=== PATIENT | female | born 1975 | race Caucasian/White ===

== ENCOUNTER 2016-09-06 08:14 | Emergency (ER) | payer MEDICARE ==
[~2016-09-06] VITALS: Ht 167.6 cm; Wt 120.6 kg
[~2016-09-06 08:14] MED LIST: CARI350T PO; FLUO20CA19 PO; HYDR-3307 PO; ZOLP10TA PO
[2016-09-06 08:29] VITALS: BP 152/97
[2016-09-06] MEDS ORDERED: HYDR25TA6 PO (09:06)
[2016-09-06] MEDS ORDERED: RISP1TAB45 PO (09:06)
[2016-09-06] MEDS ORDERED: ASPIRIN 81 MG TABLET CHEW PO ONE (09:30)
[2016-09-06] MEDS ORDERED: ASPIRIN 81 MG TABLET CHEW ONE (09:48)
[2016-09-06 10:19] LABS: ASPARTATE AMINO TRANSFERASE 15 U/L (15-37); BLOOD UREA NITROGEN 10 mg/dL (7-18)
[2016-09-06 10:25] LABS: IS PT STATUS REG ER OR PRE ER? YES
[2016-09-06 11:29] LABS: HCG UR OBC PASS
== END 2016-09-06 13:14 | disposition home or self-care (01) ==
LOC: ED 09:16
DX: N30.01 Acute cystitis with hematuria (principal); R07.89 Other chest pain; R60.0 Localized edema; I10 Essential (primary) hypertension
CPT/HCPCS: 36415; 71020; 80053; 81001; 81025; 84484; 85025; 87077; 87086; 87186; 93005; 93970; 99285

== ENCOUNTER 2016-12-04 18:41 | Emergency (ER) | payer MEDICARE ==
[~2016-12-04] VITALS: Ht 167.6 cm; Wt 123.0 kg
[~2016-12-04 18:41] MED LIST changes: +HYDR25TA6 PO; +RISP1TAB45 PO
[2016-12-04] MEDS ORDERED: SODIUM CHLORIDE FLUSH 10ML SYR IVF ONE (19:00)
[2016-12-04] MEDS ORDERED: ONDANSETRON 2MG/ML, 2ML IVPush ONE (19:00)
[2016-12-04] MEDS ORDERED: MORPHINE SULFATE 4 MG/ML, 1ML IVPush PRN (19:00)
[2016-12-04] MEDS ORDERED: ONDANSETRON 2MG/ML, 2ML ONE (19:02)
[2016-12-04] MEDS ORDERED: MORPHINE SULFATE 4 MG/ML, 1ML ONE (19:02)
[2016-12-04 19:19] LABS: HEMATOCRIT 39.4 % (34.6-47.8); HEMOGLOBIN 12.9 g/dL (11.7-16.4); WHITE BLOOD COUNT 8.7 x10^3/uL (3.4-10)
[2016-12-04 19:30] LABS: BLOOD UREA NITROGEN 12 mg/dL (7-18)
[2016-12-04] MEDS ORDERED: METOCLOPRAMIDE 5 MG/ML, 2ML IVPush ONE (20:00)
[2016-12-04] MEDS ORDERED: SODIUM CHLORIDE 0.9% 1,000ML IVBOLUS ONE (20:00)
[2016-12-04] MEDS ORDERED: DIPHENHYDRAMINE 50 MG/ML, 1ML IVPush ONE (20:00)
[2016-12-04] MEDS ORDERED: DIPHENHYDRAMINE 50 MG/ML, 1ML ONE (20:15)
[2016-12-04] MEDS ORDERED: METOCLOPRAMIDE 5 MG/ML, 2ML ONE (20:15)
[2016-12-04] MEDS ORDERED: KETOROLAC 30 MG/1 ML IVPush ONE (20:30)
[2016-12-04] MEDS ORDERED: KETOROLAC 30 MG/1 ML ONE (20:59)
[2016-12-04 21:27] VITALS: BP 143/79
== END 2016-12-04 21:31 | disposition home or self-care (01) ==
LOC: ED 20:44
DX: G43.009 Migraine without aura, not intractable, without status migrainosus (principal); F12.10 Cannabis abuse, uncomplicated; F20.9 Schizophrenia, unspecified
CPT/HCPCS: 36415; 70450; 71010; 80048; 82040; 85025; 93005; 96361; 96374; 96375; 99285; J1200; J1885; J2405; J2765; J7030

== ENCOUNTER 2019-10-13 23:41 | Observation (INO) | payer MEDICARE ==
[~2019-10-13] VITALS: Ht 167.6 cm; Wt 124.3 kg
[~2019-10-13 23:41] MED LIST changes: +HYDR-3246 PO; -HYDR-3307 PO; +TOPI15CA10 PO
--- NOTE | 2019-10-14 00:28 | NUR ---
PT IN GOWN IN [facility] WITH DR. MATTHEWS AT BS. PT EDUCATED ON ER PROCESS AND POC AND VERBALIZES UNDERSTANDING. PT ATTACHED TO ALL VS AND CARDIAC MONITORS. VSS AT THIS TIME. PT DENIES ANY OTHER NEEDS. VERBAL ORDERS RECEIVED FROM ERP.
[2019-10-14] MEDS ORDERED: MAALOX/HYOSCYAMINE/LIDOCAINE 45 ML BTL ONE (00:35)
--- NOTE | 2019-10-14 00:41 | NUR ---
PT MEDICATED PER JUN. XRAY AT BS FOR IMAGING AT THIS TIME.
[2019-10-14 01:03] LABS: BASOPHILS # (AUTO) 0.02 x10^3/uL (0-0.1); BASOPHILS % (AUTO) 0 % (0-1); EOSINOPHILS # (AUTO) 0.18 x10^3/uL (0-0.4); EOSINOPHILS % (AUTO) 2 % (1-7); LYMPHOCYTES # (AUTO) 1.64 x10^3/uL (1-3.4); LYMPHOCYTES % (AUTO) 22 % (22-44); MD NO; MEAN CORPUSCULAR HEMOGLOBIN 27.9 pg (27.0-34.8); MEAN CORPUSCULAR HGB CONC 32.7 g/dL (32.4-35.8); MEAN CORPUSCULAR VOLUME 85.4 fL (80-100); MEAN PLATELET VOLUME 9.8 fL (7.4-10.4); MONOCYTES # (AUTO) 0.63 x10^3/uL (0.2-0.8); MONOCYTES % (AUTO) 8 % (2-9); NEUTROPHILS # (AUTO) 5.07 x10^3/uL (1.8-6.8); NEUTROPHILS % (AUTO) 67 % (42-75); PLATELET COUNT 276 x10^3/uL (130-400); RED BLOOD COUNT 4.67 x10^6/uL (3.82-5.3); RED CELL DISTRIBUTION WIDTH 14.6 % (9.6-15.2)
[2019-10-14 01:11] LABS: ALBUMIN 3.2 g/dL (3.4-5.0); ANION GAP 7 mmol/L (5-15); CALCIUM 8.9 mg/dL (8.5-10.1); CHLORIDE 95 mmol/L (98-107); CREATININE 1.07 mg/dL (0.55-1.02)
[2019-10-14 01:14] LABS: TROPONIN I < 0.015 ng/mL (0.000-0.045)
[2019-10-14] MEDS ORDERED: INSULIN REGULAR 100 UNITS/ML, 3ML VIAL SQ-INSULIN ONE ×3 (02:00→15:30)
[2019-10-14] MEDS ORDERED: INSULIN SINGLE DOSE, ER ONE (02:05)
--- NOTE | 2019-10-14 02:12 | NUR ---
PT MEDICATED FOR BLOOD SUGAR PER MAR.
[2019-10-14] MEDS ORDERED: SODIUM CHLORIDE 0.9% 1,000 ML IV SCH (03:16)
[2019-10-14] MEDS ORDERED: ONDANSETRON 2MG/ML, 2ML IVPush PRN (03:30)
[2019-10-14] MEDS ORDERED: morphine SULFATE 10 MG/ML, 1ML IVPush PRN (03:30)
[2019-10-14] MEDS ORDERED: GUAIFENESIN/DM 200-20MG, 10ML UDC PO PRN (03:30)
[2019-10-14] MEDS ORDERED: NITROGLYCERIN 0.4 MG BOTTLE (25 TABS) SL PRN (03:30)
[2019-10-14] MEDS ORDERED: METHOCARBAMOL 500 MG TABLET PO PRN (03:30)
[2019-10-14] MEDS ORDERED: NITROGLYCERIN 0.4 MG/SPRAY SL PRN (03:30)
[2019-10-14] MEDS ORDERED: BISACODYL 10 MG SUPP PR PRN (03:30)
[2019-10-14] MEDS ORDERED: HYDROcodone/APAP 5/325 TABLET PO PRN (03:30)
[2019-10-14] MEDS ORDERED: hydrALAzine 20 MG/ML, 1ML IVPush PRN (03:30)
[2019-10-14] MEDS ORDERED: ZOLPIDEM 5MG TABLET PO PRN (03:30)
[2019-10-14] MEDS ORDERED: ASA/APAP/ CAFFEINE TABLET PO PRN (03:30)
[2019-10-14] MEDS ORDERED: ACETAMINOPHEN 325 MG TABLET PO PRN (03:30)
[2019-10-14] MEDS ORDERED: RISP1TAB45 PO (03:31)
[2019-10-14] MEDS ORDERED: FLUO20CA19 PO (03:31)
[2019-10-14] MEDS ORDERED: TOPI15CA10 PO (03:31)
[2019-10-14] MEDS ORDERED: PROP20TA PO (03:36)
[2019-10-14] MEDS ORDERED: HYDR25TA6 PO (03:36)
[2019-10-14] MEDS ORDERED: HYDR-826 PO (03:36)
[2019-10-14] MEDS ORDERED: METF500T PO ×2 (03:36→15:09)
[2019-10-14] MEDS ORDERED: HYDR-3652 PO (03:36)
[2019-10-14] MEDS ORDERED: GABA100C PO (03:36)
[2019-10-14] MEDS ORDERED: FLUO40CA2 PO (03:39)
[2019-10-14] MEDS ORDERED: RISP1DIS PO (03:39)
[2019-10-14] MEDS ORDERED: TOPI50TA8 PO (03:39)
[2019-10-14] MEDS: INSULIN REGULAR 100 UNITS/ML, 3ML VIAL SQ-INSULIN SCH ×3 (04:21→12:58)
[2019-10-14 04:31] LABS: TROPONIN I < 0.015 ng/mL (0.000-0.045)
[2019-10-14] MEDS ORDERED: PROPRANOLOL 20 MG TABLET PO SCH (06:00)
[2019-10-14 06:12] VITALS: BP 154/83
[2019-10-14 07:00] VITALS: BP 149/86
[2019-10-14 07:36] LABS: MICROSCOPIC INDICATED
[2019-10-14] MEDS ORDERED: metFORMIN 500 MG TABLET PO SCH (08:00)
[2019-10-14] MEDS ORDERED: FLUOXETINE HCL 20 MG CAPSULE PO SCH (09:00)
[2019-10-14] MEDS ORDERED: TOPIRAMATE 25 MG TABLET PO SCH (09:00)
[2019-10-14] MEDS ORDERED: HYDROCHLOROTHIAZIDE 25 MG TABLET PO SCH (09:00)
[2019-10-14] MEDS ORDERED: RISPERIDONE 2 MG TABLET PO SCH (09:00)
[2019-10-14] MEDS ORDERED: GABAPENTIN 300 MG CAPSULE PO SCH (09:00)
[2019-10-14] MEDS ORDERED: FAMOTIDINE 20 MG TABLET PO SCH (09:00)
[2019-10-14] MEDS ORDERED: REGADENOSON 0.4 MG/5 ML SYRINGE ONE (09:33)
[2019-10-14 09:44] LABS: TROPONIN I < 0.015 ng/mL (0.000-0.045)
[2019-10-14 13:50] VITALS: BP 130/81
[2019-10-14 14:00] VITALS: BP 123/85
[2019-10-14] MEDS ORDERED: NICOTINE 7 MG/24 HR PATCH.TD24 TD SCH (14:00)
[2019-10-14] MEDS ORDERED: OMEP20TA62 PO (14:58)
[2019-10-14] MEDS ORDERED: LISI-167 PO (14:58)
== END 2019-10-14 17:10 | disposition home or self-care (01) ==
LOC: ED 10-14 02:35 → 5SO 10-14 03:39 → INTOOBSV 10-14 03:39 → DCLOUNGE 10-14 16:51
PROVIDERS: ADMIT Internal Medicine; ATTEND Hospitalist
DX: I16.1 Hypertensive emergency (principal); R07.89 Other chest pain; E11.65 Type 2 diabetes mellitus with hyperglycemia; R11.2 Nausea with vomiting, unspecified; E66.01 Morbid (severe) obesity due to excess calories; E87.1 Hypo-osmolality and hyponatremia; I10 Essential (primary) hypertension; R56.9 Unspecified convulsions; G43.909 Migraine, unspecified, not intractable, without status migrainosus; F43.10 Post-traumatic stress disorder, unspecified; F31.9 Bipolar disorder, unspecified; G89.29 Other chronic pain; M54.5 Low back pain; F17.210 Nicotine dependence, cigarettes, uncomplicated; F12.19 Cannabis abuse with unspecified cannabis-induced disorder; F20.9 Schizophrenia, unspecified; H53.2 Diplopia; K21.9 Gastro-esophageal reflux disease without esophagitis; N95.1 Menopausal and female climacteric states; Z68.42 Body mass index [BMI] 45.0-49.9, adult; Z79.4 Long term (current) use of insulin; Z79.899 Other long term (current) drug therapy
CPT/HCPCS: 36415; 71045; 78452; 80048; 81001; 82040; 82962; 84484; 85025; 87077; 87086; 87186; 93005; 93017; 93306; 96361; 96374; 99285; A9502; G0378; J1815; J2405; J2785; J7030